=== PATIENT | male | born 1990 | race Caucasian/White ===

== ENCOUNTER 2017-06-15 10:30 | Emergency (ER) | payer SELFPAY ==
[~2017-06-15] VITALS: Ht 175.3 cm; Wt 80.0 kg
[2017-06-15 10:34] VITALS: BP 135/80; PULSE 96; RESP 20; TEMP 98.3; O2SAT 100
[2017-06-15] MEDS ORDERED: IBUP200C PO (10:41)
[2017-06-15] MEDS ORDERED: CLIN1CAP5 PO (10:52)
[2017-06-15] MEDS ORDERED: NAPR500 PO (10:52)
--- NOTE | 2017-06-15 10:54 | PD ---
HPI Chief Complaint: Oral / Dental Pain or Problem Time Seen by Provider: 10:49 Travel History International Travel<30 days: No Contact w/Intl Traveler<30days: No Traveled to known affect area: No History of Present Illness HPI Patient's complaining of right lower dental pain ongoing for 4 days. Patient states started swelling last night. Pain is sharp stabbing like in nature and radiates up his jaw. Patient did taking ibuprofen with minimal relief. Eating or drinking anything makes pain worse. Denies any fevers or difficulty swallowing. PFSH Past Medical History Medical History: Denies Significant Hx Social History Tobacco Use: No Substance Use: No Allergies-Medications (Allergen,Severity, Reaction): Coded Allergies: Penicillins (Verified Allergy, Severe, Hives, 06/15/17) Reported Meds & Prescriptions Reported Meds & Active Scripts Active Naprosyn (Naproxen) 500 Mg Tab 500 Mg PO Q12HR PRN Clindamycin (Clindamycin HCl) 150 Mg Cap 2 Cap PO Q6H 10 Days Reported Ibuprofen 200 Mg Cap 200 Mg PO Q4H PRN Review of Systems Except as stated in HPI: all other systems reviewed are Neg Physical Exam Narrative GENERAL: Well-developed, well nourished, in no acute distress, and non-ill appearing. SKIN: Focused skin assessment warm and dry. HEAD: Atraumatic. Normocephalic. EYES: Pupils equal and round. EOMI. No scleral icterus. No injection or drainage. ENT: No nasal bleeding or discharge. Mucous membranes pink and moist. Poor dentition with no visible or palpable abscess. Floor the mouth, submandibular, and submental are all soft to palpation. NECK: Trachea midline. No cervical lymphadenopathy. Supple. No nuclear rigidity. RESPIRATORY: No accessory muscle use. No respiratory distress. MUSCULOSKELETAL: No obvious deformities. No clubbing. No cyanosis. No edema. Full range of motion. NEUROLOGICAL: Awake and alert. No obvious cranial nerve deficits. Motor grossly within normal limits. Normal speech. PSYCHIATRIC: Appropriate mood and affect; insight and judgment normal. Data Data Last Documented VS Vital Signs Date Time Temp Pulse Resp B/P (MAP) Pulse Ox O2 Delivery O2 Flow Rate FiO2 06/15/17 10:57 06/15/17 10:34 98.3 96 20 100 Room Air MDM Medical Decision Making Medical Screen Exam Complete: Yes Emergency Medical Condition: Yes Differential Diagnosis Dental infection, dental abscess, dentalgia, other Narrative Course The patient presented with dental pain. There is no fever. There is no significant facial swelling or evidence of cellulitis. There is poor dentition but no evidence of drainable abscess at this time. There is no evidence of significant deep or invading abscess at this time. The patient will be placed on antibiotics and pain medication. The patient was instructed to follow up with a dentist. The patient was given the dental referral sheet. Warnings were discussed with the patient regarding worsening of infection. The patient is to return if pain worsens, develops progressive swelling or facial redness or fever. The patient agrees with plan. Patient in no obvious distress upon re-evaluation. Patient was asked if they wanted to speak to my attending, which the patient did not wish to do at this time. Any questions/concerns in reference to patient diagnosis/condition discussed and clarified prior to patient's discharge. Reinforced sheer importance of close follow up with patient's primary physician or primary care clinic and dentist. Instructed patient to return to ED immediately, if symptoms return/worsen. Pt showed understanding of above instructions. Further instructions and recommendations were detailed in discharge paperwork. Pt ambulated without difficulty out of ED at discharge. Diagnosis Primary Impression: Infected dental caries Patient Instructions: Dental Abscess (GEN), Dental Caries (DC), General Instructions Additional Instructions: Follow-up with your primary care physician and dentist as soon as possible. Rinse mouth with warm salt water gargles. Take all medication as prescribed. Return to the emergency department if symptoms get worse. Med/Other Pt SpecificInfo: Prescription(s) given Scripts Naproxen (Naprosyn) 500 Mg Tab 500 MG PO Q12HR Y for PAIN SCALE 1 TO 10, #14 TAB 0 Refills Prov: Geo Ramos MD 06/15/17 Clindamycin (Clindamycin) 150 Mg Cap 2 CAP PO Q6H for Infection for 10 Days, #80 CAP 0 Refills Prov: Geo Ramos MD 06/15/17 Disposition: 01 DISCHARGE HOME Condition: Stable Brannon Navarro Jun 15, 2017 10:54
== END 2017-06-15 16:03 | disposition home or self-care (01) ==
LOC: EDTENT 10:30
DX: K02.9 Dental caries, unspecified (principal); K04.7 Periapical abscess without sinus
CPT/HCPCS: 99283

== ENCOUNTER 2017-08-19 17:50 | Emergency (ER) | payer SELFPAY ==
[~2017-08-19] VITALS: Ht 175.3 cm; Wt 82.0 kg
[~2017-08-19 17:50] MED LIST: CLIN150C14 PO; IBUP200C PO; NAPR500 PO
[2017-08-19 17:52] VITALS: BP 136/72; PULSE 87; RESP 17; TEMP 98.5; O2SAT 100
[2017-08-19] MEDS ORDERED: KETOROLAC TROMETHAMINE 60 MG/2 ML (IM) VIAL IM ONE (19:15)
--- NOTE | 2017-08-19 19:17 | PD ---
HPI Chief Complaint: Oral / Dental Pain or Problem Time Seen by Provider: 19:11 Travel History International Travel<30 days: No Contact w/Intl Traveler<30days: No Traveled to known affect area: No History of Present Illness HPI This is a 27-year-old male who has a history of poor dentition who presents to the emergency department with pain in the right jaw that's been going on for 1 week, constant, worse with eating, associated with some swelling, also with some fever to 100 at home. He knows he needs to get into a dentist but he is waiting to get paid at work. [facility] Social History Tobacco Use: No Substance Use: No Allergies-Medications (Allergen,Severity, Reaction): Coded Allergies: Penicillins (Verified Allergy, Severe, Hives, 08/19/17) Reported Meds & Prescriptions Reported Meds & Active Scripts Active Naproxen 500 Mg Tab 500 Mg PO BID Flagyl (Metronidazole) 500 Mg Tab 500 Mg PO QID 7 Days Review of Systems General / Constitutional: Positive: Fever, No: Chills Cardiovascular: No: Chest Pain or Discomfort Respiratory: No: Shortness of Breath Physical Exam Narrative GENERAL: Well-appearing, no acute distress, nontoxic SKIN: Warm and dry. HEAD: Atraumatic. Normocephalic. ENT: Poor dentition and dental caries along the right mandible, tender to palpation along the mandibular molars with teeth with old fractures and some purulent drainage. No sublingual or submental fullness. MUSCULOSKELETAL: No obvious deformities. No clubbing. No cyanosis. No edema. NEUROLOGICAL: Awake and alert. No obvious cranial nerve deficits. Moving all extremities. PSYCHIATRIC: Appropriate mood and affect; insight and judgment normal. Data Data Last Documented VS Vital Signs Date Time Temp Pulse Resp B/P (MAP) Pulse Ox O2 Delivery O2 Flow Rate FiO2 08/19/17 18:32 16 08/19/17 17:52 98.5 87 136/72 (93) 100 Room Air Orders Orders Ketorolac Inj (Toradol Inj) (08/19/17 19:15) Ed Discharge Order (08/19/17 19:22) MDM Medical Decision Making Medical Screen Exam Complete: Yes Emergency Medical Condition: Yes Differential Diagnosis Dental infection, dental abscess, Jesus Alberto's angina Narrative Course This is a 27-year-old male who presents to the emergency department with increasing pain in his right jaw. He has evidence of multiple fractured teeth and dental caries with some purulent drainage along the gumline. I suspect he has an underlying abscess. He requires an outpatient dental consultation. He is not febrile here and appears nontoxic and has no signs on clinical exam of Jesus Alberto angina. I think he can be discharged on antibiotics. He said clindamycin is too expensive for him but he is penicillin allergic. I prescribed him Flagyl as well as a course of naproxen. Diagnosis Primary Impression: Dental infection Patient Instructions: General Instructions Additional Instructions: If you develop fever, chills, increasing swelling, swelling in her neck or your chest or difficulty swallowing return to the emergency room. Follow-up with a dentist as soon as possible. Med/Other Pt SpecificInfo: Prescription(s) given Scripts Naproxen (Naproxen) 500 Mg Tab 500 MG PO BID, #20 TAB 0 Refills Prov: Adriana Baron MD 08/19/17 Metronidazole (Flagyl) 500 Mg Tab 500 MG PO QID for Infection for 7 Days, TAB 0 Refills Prov: Adriana Baron MD 08/19/17 Disposition: 01 DISCHARGE HOME Condition: Stable Adriana Baron MD Aug 19, 2017 19:17
[2017-08-19] MEDS ORDERED: METR-1 PO (19:21)
[2017-08-19] MEDS ORDERED: NAPR500T2 PO (19:22)
== END 2017-08-19 19:47 | disposition home or self-care (01) ==
LOC: NEPD 17:50
DX: K04.7 Periapical abscess without sinus (principal); R50.9 Fever, unspecified
CPT/HCPCS: 96372; 99284; J1885

== ENCOUNTER 2017-12-25 18:50 | Emergency (ER) | payer SELFPAY ==
[~2017-12-25 18:50] MED LIST changes: -CLIN150C14 PO; -IBUP200C PO; +METR-1 PO; -NAPR500 PO; +NAPR500T2 PO
[2017-12-25 18:55] VITALS: BP 139/68; PULSE 83; RESP 16; TEMP 97.6; O2SAT 100
--- NOTE | 2017-12-28 10:53 | PD ---
HPI Chief Complaint: Eye Problems/Injury Time Seen by Provider: 18:55 Travel History International Travel<30 days: No Contact w/Intl Traveler<30days: No Traveled to known affect area: No History of Present Illness HPI 27-year-old male presents emergency department for evaluation of left eye irritation and drainage noted today. Patient denies any injury. No visual disturbances. No recent illnesses. No fever or chills. Patient has no other symptoms to report. PFSH Past Medical History Medical History: Denies Significant Hx Social History Tobacco Use: No Substance Use: No Allergies-Medications (Allergen,Severity, Reaction): Coded Allergies: Penicillins (Verified Allergy, Severe, Hives, 08/19/17) Reported Meds & Prescriptions Reported Meds & Active Scripts Active Naproxen 500 Mg Tab 500 Mg PO BID Flagyl (Metronidazole) 500 Mg Tab 500 Mg PO QID 7 Days Review of Systems Except as stated in HPI: all other systems reviewed are Neg Physical Exam Narrative 27-year-old male, appears nontoxic. He is without distress. He has even respirations. Normal heart rate. There is left scleral injection with mild crusting along the eyelash line. He moves all extremities. He speaks to me clearly. Data Data Last Documented VS Vital Signs Date Time Temp Pulse Resp B/P (MAP) Pulse Ox O2 Delivery O2 Flow Rate FiO2 12/25/17 18:55 97.6 83 16 139/68 (91) 100 MDM Medical Decision Making Medical Screen Exam Complete: Yes Emergency Medical Condition: Yes Medical Record Reviewed: Yes Differential Diagnosis Conjunctivitis versus iritis versus keratitis Narrative Course 27-year-old male presents emergency department for evaluation of left eye irritation with drainage. Patient appears nontoxic. Prior to bed placement, patient chooses to leave. AMA: The risks of leaving against medical advice without further evaluation treatment were discussed with the patient. These risks include cardiac dysfunction, cardiac dysrhythmia, possible heart attack, possible stroke or . The patient indicated understanding of these risks and appeared to have the capacity to make this decision. Diagnosis Primary Impression: Conjunctivitis Patient Instructions: General Instructions Departure Forms: Tests/Procedures Disposition: 07 AGAINST MEDICAL ADVICE Condition: Stable Lnea Navarro REAGAN Dec 28, 2017 10:53
== END 2017-12-25 20:08 | disposition left against medical advice (07) ==
LOC: NED 18:50
DX: H10.9 Unspecified conjunctivitis (principal)
CPT/HCPCS: 99281

== ENCOUNTER 2018-01-31 12:32 | Emergency (ER) | payer SELFPAY ==
[~2018-01-31] VITALS: Ht 172.7 cm; Wt 75.0 kg
[2018-01-31 12:41] VITALS: BP 139/67; PULSE 82; RESP 18; TEMP 98.4; O2SAT 98
--- NOTE | 2018-01-31 12:55 | PD ---
HPI Chief Complaint: Injury Time Seen by Provider: 12:49 Travel History International Travel<30 days: No Contact w/Intl Traveler<30days: No Traveled to known affect area: No History of Present Illness HPI 27-year-old male who is right-handed, presents emergency department for evaluation of right hand and wrist pain after striking a wall last evening. Patient states he was angry when he struck the wall. States he was able to move his digits and wrist afterwards but throughout the course days become more swollen and painful. No alterations in sensation. Pain is constant, moderate severity. He has no other symptoms to report. [facility] Past Medical History Medical History: Denies Significant Hx Tetanus Vaccination: < 5 Years Past Surgical History Surgical History: No Previous Surgery Social History Alcohol Use: No Tobacco Use: No Substance Use: No Allergies-Medications (Allergen,Severity, Reaction): Coded Allergies: Penicillins (Verified Allergy, Severe, Hives, 01/31/18) Reported Meds & Prescriptions Reported Meds & Active Scripts Active Review of Systems Except as stated in HPI: all other systems reviewed are Neg Physical Exam Narrative GENERAL: Well-nourished, well-developed male patient in no acute distress SKIN: Focused skin assessment warm/dry. HEAD: Normocephalic. EYES: No scleral icterus. No injection or drainage. NECK: Supple, trachea midline. No JVD or lymphadenopathy. CARDIOVASCULAR: Regular rate and rhythm without murmurs, gallops, or rubs. RESPIRATORY: Breath sounds equal bilaterally. No accessory muscle use. EXTREMITY: There is swelling and tenderness of the right dorsal wrist and forearm. There is no obvious deformity. The skin is intact. Flexion and extension of the fingers is normal. The fingers are warm and well perfused. Sensation to light touch is intact in the hand. Data Data Last Documented VS Vital Signs Date Time Temp Pulse Resp B/P (MAP) Pulse Ox O2 Delivery O2 Flow Rate FiO2 01/31/18 12:41 98.4 82 18 139/67 (91) 98 Orders Orders Wrist, Complete ([id number]) (01/31/18 ) Hand, Complete ([id number]) (01/31/18 ) Ibuprofen (Motrin) (01/31/18 13:00) Garcia Bandage (01/31/18 13:46) Ed Discharge Order (01/31/18 13:46) MDM Medical Decision Making Medical Screen Exam Complete: Yes Emergency Medical Condition: Yes Medical Record Reviewed: Yes Differential Diagnosis Fracture versus contusion versus sprain versus dislocation Narrative Course 27-year-old male presents emergency department for evaluation right hand injury after striking a wall. X-ray imaging confirms no acute bony abnormality. Patient is counseled on care and encouraged to utilize all alternative coping skills. He agrees to return immediately with acute worsening symptoms. Diagnosis Primary Impression: Contusion of right hand Qualified Codes: S60.221A - Contusion of right hand, initial encounter Referrals: Primary Care Physician Patient Instructions: Contusion in Adults (ED), General Instructions Additional Instructions: Ice and elevate to reduce pain and swelling Garcia wrap for compression and support and comfort Ibuprofen as directed on the package as needed for pain Return immediately with acute worsening of symptoms Med/Other Pt SpecificInfo: No Change to Meds Disposition: 01 DISCHARGE HOME Condition: Stable Lena Navarro January 31, 2018 12:55
[2018-01-31] MEDS ORDERED: IBUPROFEN 800 MG TAB PO ONE (13:00)
--- NOTE | 2018-01-31 13:45 | RADRPT ---
EXAM DATE/TIME: 01/31/2018 13:13 [facility] COMPARISON: No previous studies available for comparison. INDICATIONS : Right hand pain after punching concrete. MEDICAL HISTORY : Right wrist fracture. SURGICAL HISTORY : None. ENCOUNTER: Initial ACUITY: 1 day PAIN SCORE: 9/10 LOCATION: Right hand FINDINGS: Three view examination of the right hand demonstrates no soft tissue swelling, dislocation, or fractu re. The carpal bones appear intact. The interphalangeal and metacarpophalangeal joints are intact. Bony mineralization is normal. CONCLUSION: Normal examination for a patient of this age. Stepehn Peterson MD on January 31, 2018 at 13:42 Board Certified Radiologist. This report was verified electronically.
--- NOTE | 2018-01-31 13:45 | RADRPT ---
EXAM DATE/TIME: 01/31/2018 13:14 [facility] COMPARISON: No previous studies available for comparison. INDICATIONS : Right wrist pain after punching concrete. MEDICAL HISTORY : Right wrist fracture. SURGICAL HISTORY : None. ENCOUNTER: Initial ACUITY: 1 day PAIN SCORE: 9/10 LOCATION: Right wrist FINDINGS: Three view examination of the right wrist demonstrates no soft tissue swelling, dislocation, or fract ure. The carpal bones are in normal alignment. The joint spaces are maintained. Bony mineralizatio n is normal. CONCLUSION: Normal examination for a patient of this age. Stephen Peterson MD on January 31, 2018 at 13:43 Board Certified Radiologist. This report was verified electronically.
== END 2018-01-31 14:04 | disposition home or self-care (01) ==
LOC: NEPK 12:32
DX: S60.221A Contusion of right hand, initial encounter (principal); W22.01XA Walked into wall, initial encounter
CPT/HCPCS: 73110; 73130; 99283